=== PATIENT | male | born 1960 | race Hispanic/Latino ===

== ENCOUNTER 2018-07-11 14:20 | Emergency (ER) | payer MEDICAID ==
[2018-07-11 14:26] VITALS: BP 135/84; PULSE 84; RESP 20; TEMP 98.2; O2SAT 96
--- NOTE | 2018-07-11 14:48 | ED PDOC ---
HPI: CCC, URI, Sore Throat Time Seen by Provider: 07/11/18 14:25 Chief Complaint (Nursing): ENT Problem Chief Complaint (Provider): b/l ear pain History Per: Patient History/Exam Limitations: no limitations Onset/Duration Of Symptoms: Days Current Symptoms Are (Timing): Still Present Location Of Pain: Ear(s) Associated Symptoms: denies: Fever, Chills Ear Symptoms: Bilateral: Ear Pain Additional Complaint(s): Markel Barfield is a 58 year old male, with a past medical history of tinnitus, who presents to the emergency department complaining of a worsening bilateral ear pain onset for several days. Patient reports noises are louder than normal and states he has a scheduled appointment with an ENT specialist on . He took no medications for pain. Patient denies any fever, chill or other medical complaints. PMD: None provided. Past Medical History Reviewed: Historical Data, Nursing Documentation, Vital Signs Vital Signs: Last Vital Signs Temp 98.2 F 07/11/18 14:24 Pulse 84 07/11/18 14:24 Resp 20 07/11/18 14:24 BP 135/84 07/11/18 14:24 Pulse Ox 96 07/11/18 14:24 - Medical History PMH: No Chronic Diseases - Surgical History Surgical History: No Surg Hx - Family History Family History: States: Unknown Family Hx - Home Medications Home Medications: Ambulatory Orders Medication Instructions Recorded Amoxicillin 875 mg PO BID #20 tab 07/11/18 - Allergies Allergies/Adverse Reactions: Allergies Allergy/AdvReac Type Severity Reaction Status Date / Time No Known Allergies Allergy Verified 07/11/18 14:23 Review of Systems ROS Statement: Except As Marked, All Systems Reviewed And Found Negative Constitutional: Negative for: Fever, Chills ENT: Positive for: Ear Pain (b/l) Physical Exam - Reviewed Nursing Documentation Reviewed: Yes Vital Signs Reviewed: Yes - Physical Exam Appears: Positive for: No Acute Distress Head Exam: Positive for: ATRAUMATIC, NORMOCEPHALIC Skin: Positive for: Normal Color, Warm, Dry Eye Exam: Positive for: Normal appearance ENT: Positive for: TM Is/Are (erythematous bilaterally) Neck: Positive for: Painless ROM Respiratory: Negative for: Respiratory Distress Extremity: Positive for: Normal ROM (upper and lower extremities). Negative for: Tenderness, Deformity, Swelling Neurologic/Psych: Positive for: Alert, Oriented, Gait (steady) - ECG O2 Sat by Pulse Oximetry: 96 (RA) Medical Decision Making Medical Decision Making: Time: 14:25 Initial Impression: AOM Initial plan: Rx for antibiotics. Follow-up with ENT at previously scheduled appointment on 07/15/18. Scribe Attestation: Documented by Adiel Rowley, acting as a scribe for Priti Smith PA-C Provider Scribe Attestation: All medical record entries made by the Scribe were at my direction and personally dictated by me. I have reviewed the chart and agree that the record accurately reflects my personal performance of the history, physical exam, medical decision making, and the department course for this patient. I have also personally directed, reviewed, and agree with the discharge instructions and disposition. Disposition - Clinical Impression Clinical Impression: Acute ear infection - Disposition Referrals: Non [facility] Provider, [Primary Care Provider] - Disposition: Routine/Home Disposition Time: 14:51 Condition: STABLE Prescriptions: Amoxicillin 875 mg PO BID #20 tab Instructions: Ear Infections (Otitis Media) Forms: [employer] ([employer])
== END 2018-07-11 15:03 | disposition home or self-care (01) ==
LOC: H.ER 14:20 → SUPCPDRO 14:20 → H.ER 15:03
DX: H66.93 Otitis media, unspecified, bilateral (principal)